=== PATIENT | male | born 1990 | race Caucasian/White ===

== ENCOUNTER 2021-02-10 11:13 | Emergency (ER) | payer BC ==
[2021-02-10] MEDS ORDERED: DUONEB 0.5-3 MG/3 ml Neb IH ONE (11:42)
--- NOTE | 2021-02-10 11:43 | ERPHSYRPT ---
- History of Present Illness Time Seen by Provider: 02/10/21 11:30 Source: patient Exam Limitations: no limitations Patient Subjective Stated Complaint: pt reports covid symptoms starting 02/04/21, got a rapid test at [facility] 02/06/21 that was negative. pt reports increased s/s since that time. states he had a fever today of 100, coughed so hard he almost passed out and has a sharp headache at his temples. Triage Nursing Assessment: pt is aox3, pupils perrl, afebrile, pt is short of breath with minimal exertion, pt with intermittent cough during exam, pt lung sounds are slightly diminished bilat posteriorly, pt radial pulses strong and equal, cap refill < 3 seconds, pt skin pale warm dry. Physician History: 31 years old male presented in the ER with chief complaint of cough congestion with off-and-on fever for almost 1 week. Patient has outpatient COVID-19 testing done which is negative. Patient went back to work today and was coughing hard enough that was noticed by coworkers, was recommended to be seen in the ER by work nurse. Patient reports having bouts of coughing with activity and better with resting and also having increasing headaches bitemporally with activity and no significant relief with Tylenol. Reports his fever improved over the weekend but again having fever now. No chest pain but with the therapy did go thick having soreness all over. Unvaccinated for COVID-19. Timing/Duration: week(s) (1), intermittent, gradual onset, worse Cough Quality/Degree: moderate, dry cough Possible Cause: unknown cause Modifying Factors: Worsens With: coughing, exertion Associated Symptoms: fever, chills, chest pain/soreness, cough, dizziness, headache, lightheadedness, muscle aches, nasal congestion, nasal drainage, sore throat Allergies/Adverse Reactions: Androgenic Anabolic Steroid Allergy (Intermediate, Verified 02/10/21 11:57) pt states they make him feel like glass all over him for 5-10 min Hx Tetanus, Diphtheria Vaccination/Date Given: Yes Hx Influenza Vaccination/Date Given: No Hx Pneumococcal Vaccination/Date Given: No Immunizations Up to Date: Yes Travel Risk - International Travel Have you traveled outside of the country in past 3 weeks: No - Coronavirus Screening Are you exhibiting any of the following symptoms?: No Symptoms: Fever, Cough: New Onset, Shortness of Breath, Headaches/Body Aches/Fatigue - Vaccine Status Have you recieved a Covid-19 vaccination: No - Review of Systems Constitutional: Fever, Chills, Fatigue, Weakness Eyes: No Symptoms Ears, Nose, & Throat: Throat Swelling Respiratory: Cough, Dyspnea Cardiac: No Symptoms Abdominal/Gastrointestinal: No Symptoms Genitourinary Symptoms: No Symptoms Musculoskeletal: Myalgias Skin: No Symptoms Neurological: Dizziness, Headache Psychological: No Symptoms Endocrine: No Symptoms Hematologic/Lymphatic: No Symptoms Immunological/Allergic: No Symptoms - Past Medical History Pertinent Past Medical History: No - Past Surgical History Past Surgical History: No - Social History Smoking Status: Never smoker Exposure to second hand smoke: No Drug Use: none Patient Lives Alone: No - Nursing Vital Signs Nursing Vital Signs: Initial Vital Signs Temperature 98.3 F 02/10/21 11:18 Pulse Rate 101 H 02/10/21 11:18 Respiratory Rate 20 02/10/21 11:18 Blood Pressure 137/92 02/10/21 11:18 O2 Sat by Pulse Oximetry 100 02/10/21 11:18 Pain Scale Pain Intensity 2 - Physical Exam General Appearance: no apparent distress, alert, anxiety Eye Exam: PERRL/EOMI, eyes nml inspection Ears, Nose, Throat Exam: moist mucous membranes, pharyngeal erythema Neck Exam: normal inspection, non-tender, supple, full range of motion Respiratory Exam: diminished breath sounds, rhonchi, wheezing Cardiovascular Exam: regular rate/rhythm, normal heart sounds Gastrointestinal/Abdomen Exam: soft, normal bowel sounds, No tenderness Back Exam: normal inspection, normal range of motion Extremity Exam: normal inspection, normal range of motion Neurologic Exam: alert, oriented x 3, cooperative, 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, normal mood/affect Skin Exam: normal color SpO2 Interpretation: normal SpO2: 100 O2 Delivery: Room Air Ordered Tests: Active Orders 24 hr Category Date Time Status CHEST 1 VIEW (PORTABLE) Stat Exams 02/10/21 11:41 Completed CBC W DIFF Stat Lab 02/10/21 11:50 Completed CMP Stat Lab 02/10/21 11:50 Completed Manual Differential NC Stat Lab 02/10/21 11:50 Completed Respiratory MDI UD RT 02/10/21 12:32 Completed Respiratory Therapy Assessment DAILY RT 02/10/21 12:32 Completed Medication Summary Discontinued Medications Generic Name Dose Route Start Last Admin Trade Name Freq PRN Reason Stop Dose Admin Albuterol Sulfate 4 puff 02/10/21 11:59 02/10/21 12:10 Albuterol Common Canister Inhaler 02/10/21 12:00 4 puff STAT ONE Administration Albuterol/Ipratropium 3 ml 02/10/21 11:42 02/10/21 13:13 Ipratropium/Albuterol Sulfate 3 Ml Ampul.Neb IH 02/10/21 11:43 Not Given STAT ONE Methylprednisolone Sodium 0 mg 02/10/21 11:41 02/10/21 11:55 Succinate 125 mg/ Sterile IV 02/10/21 11:42 Not Given Water 2 ml STAT ONE Ketorolac Tromethamine 30 mg 02/10/21 11:44 02/10/21 11:49 Ketorolac Tromethamine 30 Mg/Ml Inj IV 02/10/21 11:45 30 mg STAT ONE Administration Ketorolac Tromethamine Confirm 02/10/21 11:48 Ketorolac Tromethamine 30 Mg/Ml Inj Administered 02/10/21 11:49 Dose 30 mg .ROUTE .STK-MED ONE Methylprednisolone Sodium Succinate Confirm 02/10/21 11:48 Methylprednis Sod Succ 125 Mg/2 Ml Vial Administered 02/10/21 11:49 Dose 125 mg .ROUTE .STK-MED ONE Sterile Water Confirm 02/10/21 11:48 Water For Injection,Sterile 10 Ml Vial Administered 02/10/21 11:49 Dose 10 ml IJ .STK-MED ONE Lab/Rad Data: Laboratory Result Diagrams 02/10/21 11:50 02/10/21 11:50 Laboratory Results 02/10/21 02/10/21 Range/Units 11:50 11:50 WBC 9.9 (4.0-10.5) K/mm3 RBC 4.93 (4.1-5.6) M/mm3 Hgb 14.6 (12.5-18.0) gm/dl Hct 43.0 (42-50) % MCV 87.2 (78-100) fl MCH 29.6 (26-32) pg MCHC 34.0 (32-36) g/dl RDW 12.5 (11.5-14.0) % Plt Count 326 (150-450) K/mm3 MPV 9.7 (7.5-11.0) fl Segmented Neutrophils 78 H (36.-66.) % Lymphocytes (Manual) 14 L (24-44) % Monocytes (Manual) 8 (0.0-12.0) % Platelet Estimate NORMAL (NORMAL) RBC Morphology NORMAL Sodium 136 L (137-145) mmol/L Potassium 4.1 (3.5-5.1) mmol/L Chloride 102 (98-107) mmol/L Carbon Dioxide 24 (22-30) mmol/L Anion Gap 14.6 (5-15) MEQ/L BUN 11 (9-20) mg/dL Creatinine 0.70 (0.66-1.25) mg/dL Estimated GFR > 60.0 ML/MIN Glucose 86 (74-106) mg/dL Calcium 9.8 (8.4-10.2) mg/dL Total Bilirubin 0.70 (0.2-1.3) mg/dL AST 55 (17-59) U/L ALT 90 H (0-50) U/L Alkaline Phosphatase 85 (38-126) U/L Serum Total Protein 7.8 (6.3-8.2) g/dL Albumin 5.0 (3.5-5.0) g/dL - Progress Progress: improved Air Movement: good Progress Note: 02/10/21 14:02 31-year-old is evaluated for flulike symptoms. Patient is maintaining oxygen saturation around 97% on room air. No obvious tachypnea or tachycardia. Work- up showed normal white count, grossly unremarkable chemistries and chest x-ray negative for any focal consolidation. Given symptomatic treatment with Tylenol and breathing treatment. Patient refused steroids. On reevaluation feeling much better. I will continue with inhaler to go home and recommended Tylenol to take as needed and outpatient follow-up. Outpatient COVID-19 test is obtained and recommended contact/droplet precautions until results are back. Discussed signs symptoms of worsening needing return to ER which he seems understanding. Stable for discharge. Blood Culture(s) Obtained: Yes Antibiotics given: No Counseled pt/family regarding: lab results, diagnosis, need for follow-up, rad results - Departure Departure Disposition: Home Clinical Impression: Viral syndrome, Upper respiratory infection with cough and congestion Condition: Stable Critical Care Time: No Referrals: DOCTOR,NO FAMILY [Primary Care Provider] - Follow up/PCP as directed CONNOR NOEL MD [ACTIVE STAFF] - Follow up/PCP as directed (In 2 days for reevaluation) Instructions: Cough, Adult (DC), Coronavirus Disease 2019 (COVID-19) (DC) Additional Instructions: Follow-up with primary care for reevaluation. Use inhaler as recommended. Take Tylenol as needed for aches and pains. Follow contact/droplet precautions until your COVID-19 test results are back. Return to ER for worsening cough, difficulty breathing, persistent high-grade fever etc. Prescriptions: Albuterol Sulfate [Albuterol Sulfate Hfa] 8.5 gm IH Q6H PRN 7 Days #1 inh PRN Reason: Cough
[2021-02-10] MEDS ORDERED: TORAdol 30 mg Injection IV ONE (11:44)
[2021-02-10] MEDS ORDERED: Sterile H2O 10 ml IJ ONE (11:48)
[2021-02-10] MEDS ORDERED: solu-MEDROL ONE (11:48)
[2021-02-10] MEDS ORDERED: TORAdol 30 mg Injection ONE (11:48)
[2021-02-10] MEDS: solu-MEDROL 125 MG, Sterile H2O 10 ml 2 ML IV ONE ×4 (11:49→11:55)
[2021-02-10] MEDS ORDERED: VENTOLIN COMMON CANISTER IH ONE (11:59)
--- NOTE | 2021-02-10 12:16 | XRAY ---
Indication: Cough. Comparison: None Portable chest demonstrates normal heart, lungs, and bony thorax with incidental left base calcified granuloma.
[2021-02-10 12:30] LABS: Hemoglobin 14.6 gm/dl (12.5-18.0); Mean Cell Volume 87.2 fl (78-100); Mean Corpuscular Hemoglobin 29.6 pg (26-32); Mean Platelet Volume 9.7 fl (7.5-11.0); Platelet Count 326 K/mm3 (150-450); Red Blood Count 4.93 M/mm3 (4.1-5.6); Red Cell Distribution Width 12.5 % (11.5-14.0); White Blood Count 9.9 K/mm3 (4.0-10.5)
[2021-02-10 12:43] LABS: ALKALINE PHOSPHATASE 85 U/L (38-126); ANION GAP 14.6 MEQ/L (5-15); BLOOD UREA NITROGEN 11 mg/dL (9-20); CHLORIDE 102 mmol/L (98-107); Calcium 9.8 mg/dL (8.4-10.2); Carbon Dioxide 24 mmol/L (22-30); EST GLOMERULAR FILTRATION RATE > 60.0 ML/MIN; Glucose 86 mg/dL (74-106); Potassium 4.1 mmol/L (3.5-5.1); SGOT/AST 55 U/L (17-59); SGPT/ALT 90 U/L (0-50); SODIUM 136 mmol/L (137-145); Total Protein 7.8 g/dL (6.3-8.2)
[2021-02-10 13:44] VITALS: BP 126/91; PULSE 80
[2021-02-10 14:07] VITALS: O2SAT 100
[2021-02-10 14:53] LABS: Lymphocytes 14 % (24-44); Monocyte 8 % (0.0-12.0); Neutrophils 78 % (36.-66.); Platelet Estimate NORMAL (NORMAL); Total Cells Counted 100
== END 2021-02-10 14:24 | disposition home or self-care (01) ==
LOC: ED 11:13
DX: J06.9 Acute upper respiratory infection, unspecified (principal); B97.89 Other viral agents as the cause of diseases classified elsewhere; R05.9 Cough, unspecified; R09.81 Nasal congestion; R50.9 Fever, unspecified; R51.9 Headache, unspecified; R42 Dizziness and giddiness; M79.10 Myalgia, unspecified site; J02.9 Acute pharyngitis, unspecified
CPT/HCPCS: 36000; 36415; 71045; 80053; 85025; 96374; 99284; U0003; J1885; J2930

== ENCOUNTER 2022-01-21 17:26 | Emergency (ER) | payer BC, OTHER ==
[2022-01-21 17:37] VITALS: BP 135/107; PULSE 61
[2022-01-21 17:39] VITALS: O2SAT 100
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
--- NOTE | 2022-01-21 19:55 | XRAY ---
Indication: Pain. Comparison: None 3 view right wrist obtained. No bony, articular, or soft tissue abnormalities.
== END 2022-01-21 18:05 | disposition home or self-care (01) ==
LOC: ED 17:26
DX: S60.871A Other superficial bite of right wrist, initial encounter (principal); Y04.1XXA Assault by human bite, initial encounter; Y92.149 Unspecified place in prison as the place of occurrence of the external cause; Y99.0 Civilian activity done for income or pay; Z79.899 Other long term (current) drug therapy; Z28.310 Unvaccinated for COVID-19
CPT/HCPCS: 73110; 99282